=== PATIENT | female | born 1990 | race African-American/Black ===

== ENCOUNTER 2021-08-04 10:12 | Emergency (ER) | payer OTHER ==
[~2021-08-04] VITALS: Ht 160 cm; Wt 68.0 kg
[2021-08-04 10:19] VITALS: BP 137/80
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
--- NOTE | 2021-08-04 10:53 | NUR ---
Patient discharged to home in stable condition. Written and verbal after care instructions given. Patient verbalizes understanding of instruction.
== END 2021-08-04 10:54 | disposition home or self-care (01) ==
LOC: ER 10:18
DX: Z02.89 Encounter for other administrative examinations (principal)